=== PATIENT | female | born 1990 | race Caucasian/White ===

== ENCOUNTER 2019-09-17 17:37 | Emergency (ER) | payer MEDICAID ==
[~2019-09-17] VITALS: Ht 160 cm; Wt 65.8 kg
--- NOTE | 2019-09-17 18:49 | PHYS DOC ---
Past Medical History Past Medical History: Hepatitis Additional Past Medical Histor: HEP C (REBECCA ABEL APRN) Past Surgical History: (REBECCA ABEL APRN) Alcohol Use: None Drug Use: Marijuana, Methamphetamine (REBECCA ABEL APRN) Attending Signature I have participated in the care of this patient and I have reviewed and agree with all pertinent clinical information above including history, exam, and recommendations. (ZABRINA JEFFERY MD) Adult General Chief Complaint Chief Complaint: CELLULITIS HPI HPI Patient is a 29 year old female that presents to ER stating that she has been injecting meth in her left arm and states that she is well abscess. She says this been ongoing for week. She went to urgent care before arrival and they sent her to the ER. The patient also states that she wants treated for trichomonas as her boyfriend tested positive. (REBECCA ABEL APRN) Review of Systems Review of Systems Constitutional: Denies fever or chills [] Eyes: Denies change in visual acuity, redness, or eye pain [] HENT: Denies nasal congestion or sore throat [] Respiratory: Denies cough or shortness of breath [] Cardiovascular: No additional information not addressed in HPI [] GI: Denies abdominal pain, nausea, vomiting, bloody stools or diarrhea [] : Denies dysuria or hematuria [] Musculoskeletal: Denies back pain or joint pain [] Integument: Denies rash or skin lesions [] Neurologic: Denies headache, focal weakness or sensory changes [] Endocrine: Denies polyuria or polydipsia [] All other systems were reviewed and found to be within normal limits, except as documented in this note. (REBECCA ABEL APRN) Current Medications Current Medications Current Medications Medications (Trade) Dose Ordered Sig/Wilda Start Time Stop Time Status Last Admin Dose Admin Lidocaine HCl 20 ml 1X ONCE 09/17/19 19:00 09/17/19 19:01 DC (ZABRINA JEFFERY MD) Allergies Allergies Allergies Coded Allergies Type Severity Reaction Last Updated Verified No Known Drug Allergies 09/17/19 No (ZABRINA JEFFERY MD) Physical Exam Physical Exam Constitutional: Well developed, well nourished, no acute distress, non-toxic appearance. [] HENT: Normocephalic, atraumatic, bilateral external ears normal, oropharynx moist, no oral exudates, nose normal. [] Eyes: PERRLA, EOMI, conjunctiva normal, no discharge. [] Neck: Normal range of motion, no tenderness, supple, no stridor. [] Cardiovascular:Heart rate regular rhythm, no murmur [] Lungs & Thorax: Bilateral breath sounds clear to auscultation [] Abdomen: Bowel sounds normal, soft, no tenderness, no masses, no pulsatile masses. [] Skin: abscess to left antecubital area. Back: No tenderness, no CVA tenderness. [] Extremities: No tenderness, no cyanosis, no clubbing, ROM intact, no edema. [] Neurologic: Alert and oriented X 3, normal motor function, normal sensory funct ion, no focal deficits noted. [] Psychologic: Affect normal, judgement normal, mood normal. [] (REBECCA ABEL APRN) Current Patient Data Vital Signs Vital Signs Date Time Temp Pulse Resp B/P (MAP) Pulse Ox O2 Delivery O2 Flow Rate FiO2 09/17/19 20:24 90 14 113/66 (82) 98 Room Air 09/17/19 18:18 97.6 97.6 (ZABRINA JEFFERY MD) EKG EKG [] (REBECCA ABEL APRN) Radiology/Procedures Radiology/Procedures Indication: abscess Procedure: The patient was positioned appropriately. Local anesthesia was 2% lidocaine. An incision was then made over the apex of the lesion and copious material was expressed. The drainage cavity was irrigated and packed with sterile gauze. The patients tetanus status updated as needed. The patient tolerated the procedure well. Complications: none. [facility] [address] [place] [address] IMAGING REPORT Signed PATIENT: JOSEY ALEMAN ACCOUNT: [id number] : 1990 LOCATION: ER AGE: 29 SEX: F EXAM STATUS: REG ER ORD. PHYSICIAN: REBECCA ABEL APRN REASON: abscess, PROXIMAL TO LEFT ELBOW JOINT PROCEDURE: HUMERUS LEFT Two View Left humerus: Clinical History: Pain. Technique: AP and lateral views were obtained. Comparison: None. Findings: The visualized osseous structures appear normal. Impression: No acute findings. Electronically signed by: Ramona Rivera III, MD (09/17/2019 7:22 PM) [facility] DICTATED and SIGNED BY: RAMONA RIVERA III, MD DATE: 09/17/191921 (REBECCA ABEL APRN) Course & Med Decision Making Course & Med Decision Making Pertinent Labs and Imaging studies reviewed. (See chart for details) Will get x-ray and then perform an I/D. Will place on antibiotics for home. (REBECCA ABEL APRN) Dragon Disclaimer Dragon Disclaimer This electronic medical record was generated, in whole or in part, using a voice recognition dictation system. (REBECCA ABEL APRN) Departure Departure Impression: Primary Impression: Abscess Additional Impression: Trichomonas infection Disposition: HOME, SELF-CARE Condition: STABLE Referrals: UNKNOWN PCP NAME (PCP) Patient Instructions: Abscess, Trichomoniasis Additional Instructions: Thank you for visiting [facility]. We appreciate you trusting us with your care. If any additional problems come up don't hesitate to return to visit us. Please follow up with your primary care provider so they can plan additional care if needed and know about the problem that you had. If symptoms worsen come back to the Emergency Department. Any concerning symptoms that start such as chest pain, shortness of air, weakness or numbness on one side of the body, running high fevers or any other concerning symptoms return to the ER. You have been prescribed an antibiotic today to help fight your infection. Please take all of the antibiotic as directed. If after 48 hours the infection is not improving, please return for more care. If the infection worsens, return to ER for additional care. Please have your packing removed in 2 days. Scripts Metronidazole (FLAGYL) 500 Mg Tablet 1 TAB PO BID for 7 Days, #14 TAB Prov: REBECCA ABEL APRN 09/17/19 Doxycycline Hyclate (DOXYCYCLINE HYCLATE) 100 Mg Capsule 1 CAP PO BID for 7 Days, #14 CAP Prov: REBECCA ABEL APRN 09/17/19 Cephalexin (KEFLEX) 500 Mg Capsule 1 CAP PO BID for 7 Days, #14 CAP 0 Refills Prov: REBECCA ABEL APRN 09/17/19 Problem Qualifiers REBECCA ABEL APRN Sep 17, 2019 18:49 ZABRINA JEFFERY MD Sep 18, 2019 02:40
[2019-09-17] MEDS ORDERED: LIDOCAINE 2% 20 ML VIAL. IJ ONE (19:00)
--- NOTE | 2019-09-17 19:25 | RAD ---
Two View Left humerus: Clinical History: Pain. Technique: AP and lateral views were obtained. Comparison: None. Findings: The visualized osseous structures appear normal. Impression: No acute findings. Electronically signed by: Hernan Rodriguez III, MD (09/17/2019 7:22 PM) [facility]
[2019-09-17] MEDS ORDERED: CEPH-264 PO (20:13)
[2019-09-17] MEDS ORDERED: DOXY100C2 PO (20:13)
[2019-09-17] MEDS ORDERED: METR500T PO (20:13)
[2019-09-17 20:24] VITALS: BP 113/66
== END 2019-09-17 20:24 | disposition home or self-care (01) ==
LOC: ER 17:37
DX: L02.414 Cutaneous abscess of left upper limb (principal); A59.9 Trichomoniasis, unspecified; Z98.890 Other specified postprocedural states
CPT/HCPCS: 10060; 73060; 99284